=== PATIENT | female | born 1965 | race Caucasian/White ===

== ENCOUNTER → 2016-08-06 | Outpatient (CLI) | payer OTHER | LOC: FIMAGING 07:50 | DX: Z12.31 Encounter for screening mammogram for malignant neoplasm of breast (principal) | CPT/HCPCS: G0202 ==

== ENCOUNTER 2017-02-15 11:34 | Emergency (ER) | payer MEDICAID, OTHER ==
[2017-02-15 11:40] VITALS: TEMP 98.1
--- NOTE | 2017-02-15 11:52 | CPEKG ---
Heart Rate: 59 RR Interval: 1017 P-R Interval: 140 QRSD Interval: 76 QT Interval: 440 QTC Interval: 436 P [place]: 77 QRS [place]: 59 T Wave [place]: 46 EKG Severity - NORMAL ECG - EKG Impression: SINUS RHYTHM Electronically Signed By: Brandon Kelsey 15-Feb-2017 14:33:52
[2017-02-15 12:00] LABS: % IMMATURE GRANULYOCYTES 0.3 % (0.0-1.1); ABSOLUTE IMMATURE GRANULOCYTES 0.02 10^3/uL (0.00-0.10); ADD DIFF? NO; ADD MORPH? NO; ADD SCAN? NO; ATYPICAL LYMPHOCYTE FLAG 10 (0-99); FRAGMENT RBC FLAG 0 (0-99); HEMATOCRIT 40.7 % (38.0-47.0); LEFT SHIFT FLG 0 (0-99); LIPEMIA HEMOLYSIS FLAG 90 (0-99); MEAN CELL HEMOGLOBIN 31.4 pg (27.9-34.1); MEAN CELL HEMOGLOBIN CONCENTR. 34.4 g/dL (32.4-36.7); MEAN CELL VOLUME 91.3 fL (81.5-99.8); PLATELET CLUMPS FLAG 0 (0-99); PLATELET COUNT 350 10^3/uL (150-400); RED BLOOD CELL COUNT 4.46 10^6/uL (4.18-5.33); RED CELL DISTRIBUTION WIDTH 12.1 % (11.5-15.2)
[2017-02-15 12:10] LABS: ANION GAP 13 mEq/L (8-16); CALCIUM 9.9 mg/dL (8.5-10.4); CARBON DIOXIDE 26 mEq/l (22-31); CHLORIDE 103 mEq/L (97-110); CREATININE 0.8 mg/dL (0.6-1.0); GLOMERULAR FILTRATION RATE > 60; GLUCOSE 90 mg/dL (70-100); SODIUM 142 mEq/L (134-144)
--- NOTE | 2017-02-15 12:16 | EDPHY ---
H & P Time Seen by Provider: 02/15/17 11:52 HPI/ROS: CHIEF COMPLAINT: Chest pain HISTORY OF PRESENT ILLNESS: 51-year-old female presents to the emergency department by private vehicle complaining of chest pain that began 2 days ago. Patient states that she was at home reading and developed initially pain in the right side of her jaw which then moved to the center of her back and then to her chest. She did not feel short of breath. She was not nauseous or diaphoretic. She has never had pain like this in the past. She has a strong family history of coronary artery disease. She states that the pain lasted for about an hour and half and then it completely resolved. She slept fine that night. She states that the following day, Wednesday, she felt very fatigued and tired but had no recurring chest pain. She did take her dogs for a walk on Wednesday and did not have any recurring pain. REVIEW OF SYSTEMS: Constitutional: No fever, no chills. Eyes: No double or blurry vision. ENT: No sore throat. Respiratory: No cough, no shortness of breath. Cardiac: chest pain. Gastrointestinal: No abdominal pain, vomiting or diarrhea. Genitourinary: No dysuria. Musculoskeletal: No neck or back pain. Skin: No rashes. Neurological: No headache. Past Medical/Surgical History: Postmenopausal, hysterectomy, spinal fusion Social History: Smoking Status: Never smoked Physical Exam: General Appearance: Alert, no distress. Vital signs are stable. Eyes: Pupils equal and round. Extraocular motions are all intact. ENT: Mouth: Mucous membranes moist. Respiratory: No wheezing, rhonchi, or rales, lungs are clear to auscultation. Cardiovascular: Regular rate and rhythm. Gastrointestinal: Abdomen is soft and nontender, no masses, no rebound or guarding, bowel sounds normal. Neurological: Alert and oriented x 3, cranial nerves II through XII grossly intact Skin: Warm and dry, no rashes. Musculoskeletal: Nontender to palpate along the cervical, thoracic or lumbar spine. Neck is supple. Extremities: Full range of motion and no peripheral edema. Psychiatric: Patient is oriented X 3, there is no agitation. Constitutional: Initial Vital Signs Temperature (C) 36.7 C 02/15/17 11:36 Heart Rate 68 02/15/17 11:36 Respiratory Rate 16 02/15/17 11:36 Blood Pressure 119/78 02/15/17 11:36 O2 Sat (%) 98 02/15/17 11:36 O2 Delivery Mode Room Air Allergies/Adverse Reactions: Penicillins Allergy (Verified 06/04/13 14:53) HIVES,FACE SWELLLING,CAN'T BREATHE Sulfa (Sulfonamide Antibiotics) Allergy (Verified 06/04/13 14:53) HIVES,FACE SWELLING,CAN'T BREATHE Home Medications: Medication Instructions Recorded Estradiol 02/15/17 Medical Decision Making - Diagnostics Imaging: I viewed and interpreted images myself ED Course/Re-evaluation: 51-year-old female presents to the emergency department with chest pain 2 days ago. This is now resolved. The case was discussed with Dr. Kelsey, secondary supervising physician, who did not directly evaluate the patient but agrees with treatment and plan. Laboratory studies were all within normal limits. Normal troponin. EKG was unremarkable. She was strongly encouraged to have close follow-up with dental billing specialist on-call. She will call to arrange for follow-up appointment. She was instructed to return if she developed recurring chest pain, shortness of breath, or if she felt worse in any way. Differential Diagnosis: Chest pain including but not limited to myocardial ischemia, pulmonary embolus, chest wall pain, pleural inflammation and pulmonary infectious causes. - Data Points Laboratory Results: Laboratory Results 02/15/17 11:45 02/15/17 11:45 Departure - Departure Disposition: Home, Routine, Self-Care Clinical Impression: Chest pain Qualifiers: Chest pain type: unspecified Qualified Code(s): R07.9 - Chest pain, unspecified Condition: Good Instructions: Chest Pain (ED) Additional Instructions: You need close follow-up with dental billing specialist. Call to schedule follow-up appoint with dental billing specialist in tell them that you are an ear follow-up appointment. Return to the emergency department if he developed recurring pain in your chest , difficulty breathing, or if you feel worse in any way. Referrals: Zhao Colon MD [Primary Care Provider] - 1-2 days without fail Bertrand Menon MD [Medical Doctor] - 1-2 days without fail (Cloth [employer]amer on-call )
[2017-02-15 12:22] LABS: TROPONIN I < 0.012 ng/mL (0.000-0.034)
[2017-02-15 13:10] VITALS: BP 121/76; PULSE 76; RESP 18; O2SAT 96
== END 2017-02-15 13:09 | disposition home or self-care (01) ==
DX: R07.9 Chest pain, unspecified (principal)

== ENCOUNTER → 2018-08-11 | Outpatient (CLI) | payer OTHER | LOC: FIMAGING 12:14 | PROVIDERS: ATTEND Family Medicine | DX: Z12.31 Encounter for screening mammogram for malignant neoplasm of breast (principal) ==